=== PATIENT | female | born 1975 | race Caucasian/White ===

== ENCOUNTER 2025-04-06 06:42 | Day surgery (SDC) | payer OTHER ==
[~2025-04-06] VITALS: Ht 157.5 cm; Wt 113.4 kg
[~2025-04-06 06:42] MED LIST: ACET-907 PO; LISI5TAB11 PO; MELO15TA28 PO; METF-838 PO; METRCRM TOP; SYNT100T PO
[2025-04-06] MEDS ORDERED: KETOROLAC 30 MG/ML 1 ML VIAL As Ordered ONE (06:49)
[2025-04-06] MEDS ORDERED: SUGAMMADEX SODIUM 500 MG/5 ML VIAL As Ordered ONE (06:49)
[2025-04-06] MEDS ORDERED: LIDOCAINE 2% 100 MG/5 ML SDV (FOR ANES.) As Ordered ONE (06:49)
[2025-04-06] MEDS ORDERED: ONDANSETRON 4MG 2ML VIAL As Ordered ONE (06:49)
[2025-04-06] MEDS ORDERED: dexAMETHasone 4 MG/ML 1 ML VIAL As Ordered ONE (06:49)
[2025-04-06] MEDS ORDERED: ROCURONIUM BROMIDE 50MG/5ML VIAL As Ordered ONE (06:49)
[2025-04-06] MEDS ORDERED: dexmedeTOMIDine (4 MCG/ML) 200 MCG/50 ML BTL As Ordered ONE (06:54)
[2025-04-06] MEDS ORDERED: MIDAZOLAM INJ 2 MG/2 ML VIAL As Ordered ONE (06:58)
[2025-04-06] MEDS: LR 1,000 ML IV SCH (07:31)
[2025-04-06] MEDS: ceFAZolin SODIUM 2 GM in DEXTROSE 5% (D5W) ADV/MINI-BAG 50 ML IV ONE (07:51)
[2025-04-06 07:53] LABS: PLATELET COUNT, AUTOMATED 295 10^3/uL (150-450)
[2025-04-06] MEDS ORDERED: ACETAMINOPHEN 1000MG/100ML IV BAG As Ordered ONE (08:00)
[2025-04-06 08:21] LABS: CALCIUM LEVEL 9.2 MG/DL (8.5-10.1); CARBON DIOXIDE LEVEL 27 MMOL/L (20-31); CHLORIDE LEVEL 104 MMOL/L (98-107); CREATININE FOR GFR 0.62 MG/DL (0.55-1.30); GLOMERULAR FILTRATION RATE > 90.0 (>58); POTASSIUM SERUM 4.0 MMOL/L (3.5-5.1); SODIUM LEVEL 141 MMOL/L (136-145)
[2025-04-06] MEDS: FLUORESCEIN 10% (100 MG/ML) 5 ML VIAL As Ordered ONE (08:44)
[2025-04-06] MEDS ORDERED: LR 1,000 ML IV SCH (09:10)
[2025-04-06] MEDS ORDERED: PERC5TAB12 PO (09:22)
[2025-04-06 10:30] VITALS: BP 134/82; TEMP 97.1; O2SAT 98
== END 2025-04-06 10:41 | disposition home or self-care (01) ==
LOC: M SDC 06:42
PROVIDERS: ATTEND Obstetrics & Gynecology
DX: D25.9 Leiomyoma of uterus, unspecified (principal); N88.8 Other specified noninflammatory disorders of cervix uteri; Z30.432 Encounter for removal of intrauterine contraceptive device; T83.32XA Displacement of intrauterine contraceptive device, initial encounter; Y76.8 Miscellaneous obstetric and gynecological devices associated with adverse incidents, not elsewhere classified; N73.6 Female pelvic peritoneal adhesions (postinfective); Z68.42 Body mass index [BMI] 45.0-49.9, adult; Z88.0 Allergy status to penicillin; Z88.5 Allergy status to narcotic agent; Z79.899 Other long term (current) drug therapy
CPT/HCPCS: 36415; 58301; 58571; 80048; 85027; 86850; 86900; 86901; 88307; J0131; J0665; J0690; J1100; J1885; J2250; J2405; J3010; S2900